=== PATIENT | male | born 1955 | race Caucasian/White ===

== ENCOUNTER 2016-08-28 20:33 | Emergency (ER) ==
[2016-08-28 20:38] VITALS: BP 142/88; TEMP 97; BMI 25.0
--- NOTE | 2016-08-28 20:50 | ED.PDOC ---
General ED Provider: Dr. OMAR RODRIGUEZ Chief Complaint: Extremity Pain/Injury Stated Complaint: patient states that he was mowing his yard and got of the mower and noticed a large bruise on the back of his leg. patient states that he pollard snot recall injuring himself in anyway, nor does he recall the left leg being bruised this morning. patient states that the anterior left knee is sore to the touch, but no swelling noted. patient denies pain in any other part of the leg. Time Seen by Physician: 20:48 Mode of Arrival: Walk-In Information Source: Patient Exam Limitations: No limitations Primary Care Provider: LOTUS ALDRIDGE Nursing and Triage Documentation Reviewed and Agree: Yes Skin Complaint Exam - Skin/Soft Tissue Complaint/Exam Onset/Duration: 3 hours Symptoms Are: Still present Initial Severity: None Current Severity: Moderate Character: Denies: Redness, Swelling, Raised, Painful Aggravating: Reports: None Alleviating: Reports: None Associated Signs and Symptoms: Reports: Bruising. Denies: Fever, Chills, Itching, Drainage, Tenderness, Red streaks, Joint swelling Related History: Denies: Similar episode, Recent trauma, Foreign body, Insect bite/sting, Recent Med change, Prior MRSA/VRE, Recent inpatient, Recent travel Related Surgical History: Reports: None Recent Exposure to Others w/Similar Symptoms: No Skin Findings: Present: Other (contusion on the posterior aspects of the left leg. No tenderness to palpation ) Joint Tenderness Present: No Differential Diagnoses: Other (contusion) Review of Systems - Review Of Systems Constitutional: Reports: No symptoms Eyes: Reports: No symptoms Ears, Nose, Mouth, Throat: Reports: No symptoms Respiratory: Reports: No symptoms Cardiac: Reports: No symptoms GI: Reports: No symptoms : Reports: No symptoms Musculoskeletal: Reports: No symptoms Skin: Reports: Bruising Neurological: Reports: No symptoms Endocrine: Reports: No symptoms Hematologic/Lymphatic: Reports: No symptoms All Other Systems: Reviewed and Negative Past Medical History - Past Medical History Endocrine: Reports: None Cardiovascular: Reports: Other (Arrythmia ) Respiratory: Reports: None Hematological: Reports: None Gastrointestinal: Reports: None Genitourinary: Reports: None Neuro/Psych: Reports: None Musculoskeletal: Reports: None Cancer: Reports: None - Surgical History General Surgical History: Reports: None - Family History Family History: Reports: None - Social History Smoking Status: Never smoker Hx Substance Use: No Alcohol Screening: Occasionally - Immunizations Tetanus Shot up to Date: No Physical Exam - Physical Exam Appearance: Well-appearing, No pain distress, Well-nourished Eyes: SEBASTIAN, EOMI, Conjunctiva clear ENT: Ears normal, Nose normal, Oropharynx normal Respiratory: Airway patent, Breath sounds clear, Breath sounds equal, Respirations nonlabored Cardiovascular: RRR, Pulses normal, No rub, No murmur GI/: Soft, Nontender, No masses, Bowel sounds normal, No Organomegaly Musculoskeletal: Normal strength, ROM intact, No edema, No calf tenderness Skin: Warm, Dry Neurological: Sensation intact, Motor intact, Reflexes intact, Cranial nerves intact, Alert, Oriented Psychiatric: Affect appropriate, Mood appropriate Critical Care Note - Critical Care Note Total Time (mins): 0 Course - Course Vital Signs: Temp Pulse Resp BP Pulse Ox 08/28/16 20:33 97.0 F L 62 18 142/88 H 97 Departure - Departure Time of Disposition: 20:48 Disposition: HOME SELF-CARE Discharge Problem: Bruising Instructions: Contusion in Adults (ED) Condition: Stable Pt referred to PMD for follow-up: Yes Additional Instructions: Follow up with your PCP next week Rest Push fluids Allergies/Adverse Reactions: Allergies erythromycin base Adverse Reaction (Verified 08/28/16 20:39) Nausea Penicillins Adverse Reaction (Verified 08/28/16 20:39) SHORTNESS OF AIR Home Medications: Ambulatory Orders Verapamil HCl [Verapamil ER] 240 mg PO DAILY 08/28/16 Disposition Discussed With: Patient
== END 2016-08-28 21:08 | disposition home or self-care (01) ==
LOC: ED 20:33
DX: S80.12XA Contusion of left lower leg, initial encounter (principal)
CPT/HCPCS: 99281